=== PATIENT | male | born 1985 | race Caucasian/White ===

== ENCOUNTER → 2020-05-16 07:38 | Outpatient (CLI) | payer OTHER, SELFPAY ==
--- NOTE | ~2020-05-16 | US_ITS ---
US renal BI 05/16/2020 08:08 Procedure: Realtime transabdominal ultrasound of the kidneys and bladder. Indication: Hypertension. Proteinuria. Comparison: No prior studies for comparison. Findings: Renal echotexture is normal bilaterally without hydronephrosis, contour deforming mass or r enal calculus. The right kidney measures 12.3 cm and left kidney measures 14.8 cm. Bladder within no rmal limits. Impression: 1: Unremarkable renal ultrasound. No stones, masses or hydronephrosis. Reviewed, dictated and finalized at location B. Impression: 1: Unremarkable renal ultrasound. No stones, masses or hydronephrosis.
== END ==
PROVIDERS: PCP Family Medicine Adolescent Medicine; Visit Provider Internal Medicine Nephrology
DX: R80.8 Other proteinuria (principal); I10 Essential (primary) hypertension
CPT/HCPCS: 76775

== ENCOUNTER 2023-08-08 18:47 | Emergency (ER) | payer SELFPAY ==
[2023-08-08 18:55] VITALS: BP 160/79; PULSE 78; RESP 18; TEMP 36.4; O2SAT 98
--- NOTE | 2023-08-08 20:28 | PC.NURSE ---
Pt called twice for a room at 1999 and 2009 with no answer in [facility] or outside.
--- NOTE | 2023-08-08 20:28 | PC.NURSE ---
RN in [facility] to call pt back as he is walking out the [facility] doors, pt stated he is leaving.
== END 2023-08-08 20:43 | disposition left against medical advice (07) ==
LOC: ANHED 20:33
PROVIDERS: PCP Family Medicine Adolescent Medicine
DX: R51.9 Headache, unspecified (principal)
CPT/HCPCS: 99199